=== PATIENT | male | born 1990 | race Caucasian/White ===

== ENCOUNTER 2022-01-20 17:43 | Emergency (ER) | payer SELFPAY ==
--- NOTE | ~2022-01-20 | CT_ITS ---
EXAMINATION: CT brain wo con DATE: 01/20/2022 18:21 INDICATION: dizziness/lightheaded today TECHNIQUE: Computed tomography (CT) of the head was performed without intravenous contrast. The mA wa s adjusted according to patient size. Iterative reconstruction technique was employed. The dose-lengt h product was 681.00 mGy-cm. COMPARISON: None FINDINGS: No acute intracranial hemorrhage or extra-axial fluid collection. No hydrocephalus, mass, or herniation. No acute ischemic infarct. Unremarkable dural venous sinus attenuation. No acute osseous abnormality. The aerated spaces are clear. IMPRESSION: No acute intracranial process. Reviewed, dictated and finalized at location K.
--- NOTE | ~2022-01-20 | XR_ITS ---
EXAMINATION: XR chest 1V portable Exam Date/Time: 01/20/2022 18:12 CDT CLINICAL HISTORY: dizziness with weakness today Comparison: 07/15/2010. RESULT: Lines, tubes, and devices: None. Lungs and pleura: Clear. Left upper lobe granuloma versus artifact. Cardiomediastinal silhouette: Stable cardiomediastinal silhouette. Other: No acute osseous or upper abdominal finding. IMPRESSION: No acute cardiopulmonary process Reviewed, dictated and finalized at location K.
[2022-01-20 17:43] VITALS: BP 185/100; PULSE 99; RESP 20; TEMP 36.6; O2SAT 97
--- NOTE | 2022-01-20 17:50 | ECG_ITS ---
Measurements Intervals [place] Rate: 91 P: 49 ND: 176 QRS: 66 QRSD: 123 T: 12 QT: 349 QTc: 431 Interpretive Statements SINUS RHYTHM INTRAVENTRICULAR CONDUCTION DELAY BASELINE ARTIFACT- II, III BORDERLINE ECG Electronically Signed On 01-21-2022 7:15:24 CDT by Shorty Zepeda D.O.
[2022-01-20 18:06] LABS: Basophils Absolute Auto 0.06 K/mm3 (0.00-0.10); Basophils Percent Auto 0.5 % (0.0-1.0); Eosinophils Absolute Auto 0.24 K/mm3 (0.02-0.50); Eosinophils Percent Auto 2.2 % (1.0-6.0); Hematocrit 44.8 % (40.0-54.0); Immature Granulocyte Absolute 0.05 K/mm3 (0.00-0.00); Immature Granulocyte Percent A 0.4 % (0.0-0.0); Lymphocytes Absolute Auto 4.43 K/mm3 (1.10-4.50); Lymphocytes Percent Auto 39.8 % (18.0-42.0); Mean Corpuscular HGB Conc 35.7 g/dL (32.0-36.0); Mean Corpuscular Hemoglobin 32.3 pg (27.0-31.0); Mean Corpuscular Volume 90.5 fL (78.0-102.0); Mean Platelet Volume 9.5 fl (8.7-11.0); Monocytes Absolute Auto 1.07 K/mm3 (0.10-0.90); Monocytes Percent Auto 9.6 % (2.0-11.0); Neutrophils Absolute Auto 5.3 K/mm3 (1.7-7.2); Neutrophils Percent Auto 47.5 % (50.0-70.0); Platelet Count Result 254 K/mm3 (150-420); Red Blood Count 4.95 M/mm3 (4.70-6.10); Red Cell Distribution Width 11.8 % (11.6-14.4); White Blood Count 11.1 K/mm3 (4.8-10.8)
[2022-01-20 18:17] LABS: Add Urine Microscopic? NO; Appearance Urine Clear (Clear); Bilirubin Urine Negative (Negative); Blood Urine Negative (Negative); Color Urine Yellow (Yellow); Glucose Urine UA Negative (Negative); Ketones Urine Negative (Negative); Leukocyte Esterase Ur Negative (Negative); Nitrate Urine Negative (Negative); Protein Urine Negative (Negative); Urobilinogen Urine 0.2 mg/dL (0.2-1.0)
[2022-01-20] MEDS: SODIUM CHLORIDE 0.9% IV 1,000 ML 999 ML IV CONT (18:22)
[2022-01-20 18:24] LABS: Amphetamine Screen Urine Negative (Negative); Barbiturate Screen Urine Negative (Negative); Benzodiazepines Screen Urine Negative (Negative); Cannabinoid Screen Urine Negative (Negative); Cocaine Screen Urine Negative (Negative); Methadone Screen Urine Negative (Negative); Opiate Screen Urine Negative (Negative); Phencyclidine Screen Urine Negative (Negative)
[2022-01-20 18:26] LABS: Alanine Aminotransferase 92 U/L (16-63); Albumin Level 3.9 g/dL (3.4-5.0); Alkaline Phosphatase 106 U/L (46-116); Anion Gap 10 mmol/L (8-16); Aspartate Amino Transferase 26 U/L (15-37); Bilirubin,Total 0.4 mg/dL (0.00-1.00); Blood Urea Nitrogen 14 mg/dL (7-18); Calcium 8.5 mg/dL (8.5-10.1); Carbon Dioxide 25 mmol/L (21-32); Chloride 102 mmol/L (98-108); Estimated Glomerular Filt Rate > 60; Ethanol < 3 mg/dL (0-6); Glucose 95 mg/dL (70-99); Osmolality Calculated 284 mOsm/kg (285-295); Potassium 3.6 mmol/L (3.5-5.1); Sodium 137 mmol/L (136-145); Total Protein 7.1 g/dL (6.4-8.2); Troponin I 5.6 ng/L (0.00-60.4)
[2022-01-20 18:28] LABS: Lactic Acid Reflex 1.2 mmol/L (0.4-2.0)
[2022-01-20 18:41] VITALS: BP 168/97; PULSE 86; RESP 20; O2SAT 97
--- NOTE | 2022-01-20 19:00 | PC.NURSE ---
PT AMBULATED AROUND ER WITHOUT DIZZINESS, OR HEART PALPITATIONS. DR ROSALES UPDATED.
--- NOTE | 2022-01-20 19:00 | ED.DIZZY ---
HPI - Dizziness General Chief Complaint: Dizziness Stated Complaint: off balance, high heart rate Time Seen by Provider: 01/20/22 17:45 Source: patient and RN notes reviewed Mode of arrival: ambulatory Limitations: no limitations History of Present Illness MD elicited complaint: dizziness, difficulty walking, disequilibrium and other (all initial sxs resolved in the ED.) Pertinent past history: other (none) Onset (ago): hour(s) (1) Timing: sudden onset and episodic Severity: moderate Description: off-balance and difficulty walking Context: other (Pt was working in warmer than usual temp today.) History of similar symptoms: No Exacerbating factors: movement/ambulation Relieving factors: nothing Associated symptoms: denies other symptoms Related Data Home Medications Medication Instructions Recorded Confirmed No Home Medications 01/20/22 01/20/22 Allergies Allergy/AdvReac Type Severity Reaction Status Date / Time No Known Allergies Allergy Verified 01/20/22 18:04 Review of Systems Review of Systems: All systems reviewed & are unremarkable except as noted in HPI and below PMFSH Past Medical History Medical History (Updated 01/20/22 @ 19:20 by Cruz Shearer MD) Dizziness and giddiness Heat cramp, initial encounter Exam Const: General: no acute distress and alert Nutritional Appearance: well nourished Orientation/consciousness: patient oriented x3 Limitations: no limitations HENMT: Head: normal to inspection Ears: TM's normal bilaterally and EAC's normal General nose exam: Normal external nose present and Normal nares present Face and sinus: normal facial exam and sinuses nontender Mouth: Yes lip normal and Yes moist mucous membranes Eyes: Conjunctivae: conjunctivae normal Pupils: Equal, round and reactive pupils present EOM: EOMs intact bilaterally Neck: Neck: normal visual inspection and no lymphadenopathy Chest: Chest palpation & inspection: normal inspection of the chest Resp: Effort & Inspection: normal respiratory effort Auscultation: clear to auscultation bilaterally Cardio: Rate: regular rate Rhythm: regular rhythm GI: GI Palp: Yes Soft to palpation and No Tenderness to palpation present (GI) Auscultation: normal bowel sounds : General: Yes bladder normal to palpation and Yes no CVA tenderness Male General Exam: Yes normal external exam Testes: Testes normal Back/Spine/Pelvis: Back: no CVA tenderness Skin: General skin exam: normal color Rashes: no rashes Neuro: General: patient oriented x3, moves all extremities, no meningeal signs, no focal motor deficits and CN's II-XI intact bilaterally Extrem: General: normal to inspection and no pedal edema Psych: Appearance: grossly normal and well kempt Mental Status: mental status grossly normal Affect: normal affect Attitude: cooperative Thought content: Yes Normal thought content present Course Course Emergency Course: Pt was stable in the ED. He was pain-free and ambulated normally in the ED. Reevaluation(s) Date: 01/20/22 Time: 18:41 Vital Signs Vital signs: Vital Signs Temperature 36.6 C 01/20/22 17:43 Pulse Rate 99 01/20/22 17:43 Respiratory Rate 20 01/20/22 17:43 Blood Pressure 185/100 H 01/20/22 17:43 Pulse Oximetry 97 01/20/22 17:43 Temperature 36.6 C 01/20/22 17:43 Pulse Rate 86 01/20/22 18:41 Respiratory Rate 20 01/20/22 18:41 Blood Pressure 168/97 H 01/20/22 18:41 Pulse Oximetry 97 01/20/22 18:41 MDM - Dizziness Differential Diagnosis Differential diagnosis: Likely benign paroxysmal positional vertigo and transient cerebral ischemia Medical Records Attestation: I reviewed the patient's medical records. Lab Data Attestation: I reviewed the patient's lab results. Result diagrams: 01/20/22 18:03 01/20/22 18:03 Labs: Lab Results 01/20/22 01/20/22 01/20/22 Range/Units 18:03 18:03 18:03 WBC 11.1 H (4.8-10.8) K/mm3 RBC 4.95
[2022-01-20 19:01] VITALS: BP 142/87; PULSE 87; RESP 20; TEMP 36.6; O2SAT 98
== END 2022-01-20 19:10 | disposition home or self-care (01) ==
PROVIDERS: Emergency Provider Emergency Medicine
DX: T67.2XXA Heat cramp, initial encounter (principal); R42 Dizziness and giddiness
CPT/HCPCS: 36415; 70450; 71045; 80053; 80307; 81003; 83605; 84484; 85025; 93005; 96360; 99284; J7030